=== PATIENT | female | born 1990 | race Caucasian/White ===

== ENCOUNTER → 2018-05-23 18:11 | Outpatient (CLI) | payer BC ==
[~2018-05-23 18:11] MED LIST: CYCLOBENZAPRINE10 MG PO; NORCO 7.5/325 T1 TA1 PO
[2018-05-29 10:03] VITALS: BMI 22.3
== END | disposition home or self-care (01) ==
LOC: D.LABREF 18:11
DX: N20.0 Calculus of kidney (principal); N39.0 Urinary tract infection, site not specified

== ENCOUNTER → 2018-05-28 10:42 | Outpatient (CLI) | payer BC ==
[2018-05-29 10:03] VITALS: BMI 22.3
== END | disposition home or self-care (01) ==
LOC: D.CT 10:42
DX: N20.0 Calculus of kidney (principal)

== ENCOUNTER 2018-05-29 08:57 | Day surgery (SDC) | payer BC ==
[~2018-05-29] VITALS: Ht 160 cm; Wt 57.2 kg
--- NOTE | ~2018-05-29 | OP ---
PATIENT NAME: TJ ESPINAL MEDICAL RECORD: [id number] :89 LOCATION:D[facility] ADMISSION DATE: SURGEON: LUIS ALBERTO URIBE MD DATE OF OPERATION: 05/29/2018 SURGEON: Luis Alberto Uribe MD ANESTHESIA: MAC by Guillaume Navarro CRNA. DIAGNOSIS: Retained right ureteral stent. PROCEDURES: Cystoscopy and removal of right ureteral stent. SPECIMENS: Right ureteral stent. COMPLICATIONS: None. CLINICAL HISTORY: This is a 28-year-old female, who was [place] when she developed right renal colic. She went to the Emergency Room locally and she was given an insertion of a right ureteral stent. She then came back to [place]. I saw her in the clinic. We obtained a KUB and the stone was radiolucent. It was originally about 8 mm in size. She was treated with potassium citrate to dissolve the uric acid stone. Her latest CT scan of the abdomen and pelvis shows no visible stones in either kidney. We are now removing the right ureteral stent as her uric acid stone has been completely dissolved. She is allergic to IODINE and SULFA. She was given [employer] technician to the OR. DESCRIPTION OF PROCEDURE: The patient was given IV sedation. She was placed in the dorsal lithotomy position and prepped and draped. A 21-Kittitian cystoscope with 30-degree lens was used for visualization. The stent was seen immediately. Grasping forceps were placed around the stent and the stent was entirely removed. The patient can see me on a p.r.n. basis for followup. TRANSINT:[id number] Voice Confirmation ID: [id number] DOCUMENT ID: [id number] LUIS ALBERTO URIBE MD at 1348 CC: [id number] DICTATION DATE: 05/29/18 1119 OWNER MANAGER: 05/29/18 1129 [facility] [address] [place] [address]
[2018-05-29 09:22] LABS: HEMATOCRIT 36.1 % (36.0-48.0); MCH 29.3 pg (26.0-34.0); MCHC 33.2 g/dL (31.0-37.0); MEAN PLATELET VOLUME 8.5 fL (7.4-10.4); RBC 4.1 10x6/uL (4.00-5.40); RDW 12.6 % (11.5-14.5); WBC 9.5 10x3/uL (4.8-10.8)
[2018-05-29 10:03] VITALS: Ht 160 cm; Wt 57.2 kg
[2018-05-29 10:27] LABS: HCG URINE NEGATIVE (NEGATIVE)
[2018-05-29 14:43] LABS: APPEARANCE HAZY (CLEAR); BILIRUBIN NEGATIVE (NEGATIVE); COLOR YELLOW (YELLOW); GLUCOSE NEGATIVE (NEGATIVE); KETONE NEGATIVE (NEGATIVE); NITRITE NEGATIVE (NEGATIVE); PROTEIN TRACE mg/dL (NEGATIVE); UROBILINOGEN NORMAL (NORMAL)
[2018-05-29 14:53] LABS: BACTERIA MODERATE /hpf (NONE SEEN); EPITHELIAL CELLS 0-5 /hpf (0-5); MUCUS <1+ /lpf (NONE SEEN)
== END 2018-05-29 14:25 | disposition home or self-care (01) ==
LOC: D.OPS 08:57 → D.PAN 13:00 → D.OPS 14:25
PROVIDERS: Anesthesiology; Urology
DX: Z46.6 Encounter for fitting and adjustment of urinary device (principal); Z01.812 Encounter for preprocedural laboratory examination